=== PATIENT | female | born 1985 ===

== ENCOUNTER 2017-06-09 00:54 | Emergency (ER) | payer MEDICAID ==
[2017-06-09 01:15] VITALS: TEMP 98.2; O2SAT 98
--- NOTE | 2017-06-09 01:49 | C.PDOC ---
History Of Present Illness 31 year old female who presents to the ER after she accidentally drank a few drops of liquid air freshener from her friend's car. Denies nausea, vomiting, or abdominal pain. Time Seen by Provider: 06/09/17 01:47 Chief Complaint (Nursing): Ingestion, Accidental History Per: Patient History/Exam Limitations: no limitations Onset/Duration Of Symptoms: Hrs Current Symptoms Are (Timing): Still Present Recent travel outside of the [place]: No Past Medical History Reviewed: Historical Data, Nursing Documentation, Vital Signs Vital Signs: Last Vital Signs Temp 98.2 F 06/09/17 01:09 Pulse 89 06/09/17 02:04 Resp 18 06/09/17 02:04 BP 132/85 06/09/17 02:04 Pulse Ox 98 06/09/17 02:04 - Medical History PMH: No Chronic Diseases Surgical History: No Surg Hx Family History: States: Unknown Family Hx - Social History Hx Alcohol Use: Yes Hx Substance Use: No - Immunization History Hx Tetanus Toxoid Vaccination: No Hx Influenza Vaccination: No Hx Pneumococcal Vaccination: No Review Of Systems Constitutional: Negative for: Fever, Chills Cardiovascular: Negative for: Chest Pain, Palpitations Respiratory: Negative for: Shortness of Breath Gastrointestinal: Negative for: Nausea, Vomiting, Abdominal Pain, Diarrhea Physical Exam - Physical Exam Appears: Non-toxic, No Acute Distress, Other ([place]) Skin: Normal Color, Warm, Dry Head: Atraumatic, Normacephalic Oral Mucosa: Moist Chest: Symmetrical, No Tenderness Cardiovascular: Rhythm Regular, No Murmur Respiratory: Normal Breath Sounds, No Rales, No Rhonchi, No Wheezing Gastrointestinal/Abdominal: Soft, No Tenderness Neurological/Psych: Oriented x3, Normal Speech, Normal Cognition ED Course And Treatment O2 Sat by Pulse Oximetry: 98 (Room air) Pulse Ox Interpretation: Normal Progress Note: Discussed case with poison control who state patient needs supportive care only, will discharge home. Medical Decision Making Medical Decision Making: accidental ingestion of a scant amount of liquid air freshener and alcohol intoxication with boyfriend. Normal exam cleared by Poison Control, supportive care Disposition Doctor Will See Patient In The: Office Counseled Patient/Family Regarding: Studies Performed, Diagnosis - Disposition Referrals: Shaik Gamez MD [Staff Provider] - Disposition: HOME/ ROUTINE Disposition Time: 01:49 Condition: GOOD Additional Instructions: supportive care for bad tasting liquid Evaluated by Poison Control as NOT Dangerous Follow-up with your PMD as needed. DO NOT drink liquid Air Freshener Liquids in the future. Instructions: Alcohol Intoxication (ED) Forms: [facility] (Guyanese) Print Language: JORDANIAN - Clinical Impression Clinical Impression: Accidental ingestion of substance - Scribe Statement The provider has reviewed the documentation as recorded by the Scribmicheline Omalley All medical record entries made by the Daniaibmicheline were at my direction and personally dictated by me. I have reviewed the chart and agree that the record accurately reflects my personal performance of the history, physical exam, medical decision making, and the department course for this patient. I have also personally directed, reviewed, and agree with the discharge instructions and disposition.
[2017-06-09 02:05] VITALS: BP 132/85; PULSE 89; RESP 18
== END 2017-06-09 02:04 | disposition home or self-care (01) ==
LOC: C.ER 00:54
DX: T65.891A Toxic effect of other specified substances, accidental (unintentional), initial encounter (principal)

== ENCOUNTER 2017-06-09 15:38 | Emergency (ER) | payer MEDICAID ==
[2017-06-09 16:33] VITALS: BP 143/85; PULSE 84; RESP 18; TEMP 98.6; O2SAT 100
== END 2017-06-09 20:14 | disposition left against medical advice (07) ==
LOC: C.ER 15:38
DX: R11.2 Nausea with vomiting, unspecified (principal); Z02.9 Encounter for administrative examinations, unspecified

== ENCOUNTER 2018-04-20 15:53 | Emergency (ER) | payer MEDICAID ==
[2018-04-20 15:58] VITALS: RESP 18; TEMP 98.7; O2SAT 100
[2018-04-20 16:25] LABS: SQUAMOUS EPITHIAL 2 /hpf (0-5); URINE BACTERIA RARE (<OCC); URINE BILIRUBIN NEGATIVE (NEGATIVE); URINE BLOOD NEGATIVE (NEGATIVE); URINE CLARITY Clear (Clear); URINE COLOR Yellow (YELLOW); URINE GLUCOSE (UA) NORMAL (Normal); URINE LEUKOCYTE ESTERASE NEG Leu/uL (Negative); URINE PROTEIN NEGATIVE (NEGATIVE); URINE UROBILINOGEN NORMAL mg/dL (0.2-1.0)
[2018-04-20] MEDS ORDERED: Lidocaine 5% Patch TD STA (16:55)
--- NOTE | 2018-04-20 16:58 | C.PDOC ---
History Of Present Illness 32 Y/O FEMALE PRESENTS TO ED WITH C/O LOCALIZED LOWER MID BACK PAIN X 3 DAYS ASSOCIATED WITH OCCASIONAL DYSURIA. 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 PATIENT REPORTS PAIN INTERMITTENT AND WORSE WITH MOVEMENT. NO TRAUMA. LIMITED IMPROVE MOTRIN 800 MG, LAST TAKEN @1200. EXAM MILD DIST NONTOXIC BACK +B/L LOWER BACK SPASM W LOCAL TEND. NO LS TEND. LIMITED ROM NO CVAT NEURO INTACT MDM UA NEG. BACK SPRAIN. PAIN RX, FU PMD Time Seen by Provider: 04/20/18 16:00 Chief Complaint (Nursing): Female Genitourinary History Per: Patient History/Exam Limitations: no limitations Onset/Duration Of Symptoms: Days Current Symptoms Are (Timing): Still Present Quality Of Discomfort: "Pain" Past Medical History Reviewed: Historical Data, Nursing Documentation, Vital Signs Vital Signs: Last Vital Signs Temp 98.7 F 04/20/18 15:55 Pulse 71 04/20/18 15:55 Resp 18 04/20/18 15:55 BP 123/84 04/20/18 15:55 Pulse Ox 100 04/20/18 16:58 - Medical History PMH: Depression Surgical History: No Surg Hx Family History: States: No Known Family Hx - Social History Hx Tobacco Use: No Hx Alcohol Use: Yes Hx Substance Use: No - Immunization History Hx Tetanus Toxoid Vaccination: No Hx Influenza Vaccination: No Hx Pneumococcal Vaccination: No Review Of Systems Constitutional: Negative for: Fever, Chills Gastrointestinal: Negative for: Nausea, Vomiting, Abdominal Pain Genitourinary: Positive for: Dysuria. Negative for: Hematuria Musculoskeletal: Positive for: Back Pain Skin: Negative for: Rash Physical Exam - Physical Exam Appears: Non-toxic, Other (In mild distress) Skin: Warm, Dry, No Rash Head: Atraumatic, Normacephalic Eye(s): bilateral: Normal Inspection Oral Mucosa: Moist Neck: Supple Cardiovascular: Rhythm Regular Respiratory: Normal Breath Sounds, No Rales, No Rhonchi, No Wheezing Gastrointestinal/Abdominal: Soft, No Tenderness, No Guarding, No Rebound Back: No CVA Tenderness, Decreased ROM, Muscle Spasm (bilateral lower back with localized tenderness), No Paraspinal Tenderness Neurological/Psych: Oriented x3, Normal Speech, Normal Motor, Normal Sensation ED Course And Treatment O2 Sat by Pulse Oximetry: 100 (RA) Pulse Ox Interpretation: Normal Medical Decision Making Medical Decision Making: UA NEG. BACK SPRAIN. PAIN RX, FU PMD Disposition Counseled Patient/Family Regarding: Studies Performed, Diagnosis, Need For Followup, Rx Given - Disposition Referrals: MD YRN [Other] Disposition: HOME/ ROUTINE Disposition Time: 16:57 Condition: IMPROVED Additional Instructions: APLICA PARCHE AL BERTRAM AFECTADA. MAX 3 PARCHES A LA VEZ. RETIRE EL PATCH 12 HORAS DESPUS DE LA APLICACIN INICIAL. ALTERNATIVAS 12 HORAS ACTIVADAS, 12 HORAS DESACTIVADAS. Prescriptions: Acetaminophen [Tylenol Extra Strength] 2 tab PO Q6 #30 tablet Cyclobenzaprine [Flexeril] 10 mg PO TID #15 tab Lidocaine 5% [Lidoderm] 1 ea TD PRN PRN #10 patch PRN Reason: Pain, Moderate (4-7) Instructions: Low Back Pain (DC) Forms: [facility] (Arabic) Print Language: CHINESE - Clinical Impression Clinical Impression: Back pain - Scribe Statement The provider has reviewed the documentation as recorded by the Daniaibmicheline Whitaker All medical record entries made by the Daniaibmicheline were at my direction and personally dictated by me. I have reviewed the chart and agree that the record accurately reflects my personal performance of the history, physical exam, medical decision making, and the department course for this patient. I have also personally directed, reviewed, and agree with the discharge instructions and disposition.
[2018-04-20 17:26] VITALS: BP 121/79; PULSE 68
== END 2018-04-20 17:26 | disposition home or self-care (01) ==
LOC: C.ER 15:53
DX: M54.5 Low back pain (principal)
CPT/HCPCS: 81001; 87086; 96372; 99284; J1885

== ENCOUNTER 2018-04-24 11:38 | Emergency (ER) | payer MEDICAID ==
[2018-04-24 11:51] VITALS: TEMP 98
[2018-04-24] MEDS: Dexamethasone 4 mg/1 ml IM STA (12:28)
--- NOTE | 2018-04-24 13:23 | C.PDOC ---
History Of Present Illness 32 y/o female presents to the ED complaining of 1 week history of left-sided lower back pain. Patient was seen here 4 days ago and was discharged home with pain medications. She states the pain has continued, prompting her to return for further evaluation. 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 Otherwise she denies any numbness, weakness, bowel or bladder incontinence, abdominal pain, or fever. No associated trauma or fall. Time Seen by Provider: 04/24/18 11:52 Chief Complaint (Nursing): Back Pain History Per: Patient History/Exam Limitations: no limitations Onset/Duration Of Symptoms: Days Current Symptoms Are (Timing): Still Present Past Medical History Reviewed: Historical Data, Nursing Documentation, Vital Signs Vital Signs: Last Vital Signs Temp 98.0 F 04/24/18 11:50 Pulse 78 04/24/18 13:42 Resp 16 04/24/18 13:42 BP 108/85 04/24/18 13:42 Pulse Ox 100 04/24/18 14:19 - Medical History PMH: Depression Family History: States: Unknown Family Hx - Social History Hx Tobacco Use: No Hx Alcohol Use: Yes Hx Substance Use: No - Immunization History Hx Tetanus Toxoid Vaccination: No Hx Influenza Vaccination: No Hx Pneumococcal Vaccination: No Review Of Systems Except As Marked, All Systems Reviewed And Found Negative. Constitutional: Negative for: Fever, Chills Gastrointestinal: Negative for: Vomiting, Abdominal Pain Genitourinary: Negative for: Dysuria, Frequency, Incontinence Musculoskeletal: Positive for: Back Pain Neurological: Negative for: Weakness, Numbness, Incoordination Physical Exam - Physical Exam Appears: Non-toxic, No Acute Distress Skin: Normal Color, Warm, No Rash Head: Atraumatic, Normacephalic Eye(s): bilateral: Normal Inspection Oral Mucosa: Moist Neck: Normal ROM, Supple Chest: Symmetrical Cardiovascular: Rhythm Regular, No Murmur Respiratory: Normal Breath Sounds, No Accessory Muscle Use Gastrointestinal/Abdominal: Soft, No Tenderness, No Distention Back: No Vertebral Tenderness, Paraspinal Tenderness (mild left paralumbar tenderness) Extremity: Bilateral: Atraumatic, Normal Color And Temperature, Normal ROM Neurological/Psych: Oriented x3, Normal Speech, Normal Cranial Nerves, Normal Motor, Normal Sensation, Other (No focal deficits) ED Course And Treatment O2 Sat by Pulse Oximetry: 100 (RA) Pulse Ox Interpretation: Normal - Other Rad X-ray lumbar spine X-Ray: Viewed By Me, Read By Radiologist Interpretation: FINDINGS: BONES: There is normal alignment of the lumbar vertebral bodies. There is normal lumbar lordosis. There is no acute fracture, spondylolysis or spondylolisthesis. Bone mineralization is normal. DISC SPACES : The disc heights are maintained. OTHER FINDINGS: There are no pathologic soft tissue calcifications. Both sacroiliac joints are normal. IMPRESSION: No acute fracture, spondylolysis or spondylolisthesis. Medical Decision Making Medical Decision Making: Plan: * POC urine preg * X-ray lumbar spine * Toradol 30 mg IM * Decadron 10 mg IM * Valium 5 mg PO Progress/Updates: On reevaluation, patient reports complete relief of pain and remains afebrile, AAOx3, with steady gait. Patient is stable for discharge home. Provided with prescriptions and advised to follow up with PMD for further evaluation. Disposition Counseled Patient/Family Regarding: Diagnosis, Need For Followup, Rx Given - Disposition Referrals: Mohamud Armas MD [Non-Staff] - Disposition: HOME/ ROUTINE Disposition Time: 13:23 Condition: GOOD Additional Instructions: Follow up with the medical doctor within 1-2 days. Return if worsened. Prescriptions: predniSONE [Prednisone] 20 mg PO BID #10 tab Instructions: Low Back Pain in Adults, Sciatica Exercises Forms: [facility] (Moldovan), Work Excuse Print Language: KITTITIAN - POA Present On Arrival: None - Clinical Impression Clinical Impression: Low back strain - PA / [employer] / Resident Statement MD/DO has reviewed & agrees with the documentation as recorded. - Scribe Statement The provider has reviewed the documentation as recorded by the Scribe (Natalia Womack) All medical record entries made by the Scribe were at my direction and personally dictated by me. I have reviewed the chart and agree that the record accurately reflects my personal performance of the history, physical exam, medical decision making, and the department course for this patient. I have also personally directed, reviewed, and agree with the discharge instructions and disposition.
[2018-04-24 13:42] VITALS: BP 108/85; PULSE 78; RESP 16
--- NOTE | 2018-04-24 13:44 | RAD ---
Date of service: 04/24/2018 PROCEDURE: Radiographs of the Lumbar Spine. HISTORY: Back pain COMPARISON: No prior. FINDINGS: BONES: There is normal alignment of the lumbar vertebral bodies. There is normal lumbar lordosis. There is no acute fracture, spondylolysis or spondylolisthesis. Bone mineralization is normal. DISC SPACES: The disc heights are maintained. OTHER FINDINGS: There are no pathologic soft tissue calcifications. Both sacroiliac joints are normal. IMPRESSION: No acute fracture, spondylolysis or spondylolisthesis.
[2018-04-24 14:13] VITALS: O2SAT 100
== END 2018-04-24 13:42 | disposition home or self-care (01) ==
LOC: C.ER 11:38
DX: S39.012A Strain of muscle, fascia and tendon of lower back, initial encounter (principal); X58.XXXA Exposure to other specified factors, initial encounter
CPT/HCPCS: 72100; 96372; 99283; J1100; J1885